=== PATIENT | male | born 1950 | race Caucasian/White ===

== ENCOUNTER 2022-06-16 08:09 | Outpatient (CLI) | payer BC, SELFPAY ==
--- NOTE | ~2022-06-16 | XR_ITS ---
Cervical Spine: AP, lateral, open-mouth views Clinical History: Pain Findings: There is mild reversal normal cervical lordosis. There is a moderate to advanced degenerati ve disc narrowing at C5-C6 and C6-C7. There is also severe degenerative disc narrowing or possibly fu radha across the C2-C3 disc. Possible fusion of the C2-C3 facet joints. There is right-sided facet razia nt degenerative change throughout the remainder of the cervical spine. Pre-vertebral soft tissues are unremarkable. Impression: Degenerative spondylosis, as detailed above. No fracture or subluxation. Reviewed, dictated and finalized at location . PTIONIST SCHEDULER Impression: Degenerative spondylosis, as detailed above. No fracture or subluxation.
--- NOTE | 2022-06-16 11:00 | NEURO_ITS ---
Impression: # Complains of numbness of right hand. # Evolving right Carpal Tunnel Syndrome. # Right ulnar neuropathy around the elbow. # Normal needle/EMG exam. Motor Nerve Conduction Upper Extremities Median Nerve Conduction Velocity (m/sec) Terminal Latency (msec) Response Voltage(mV) Elbow-Wrist Wrist Elbow Wrist Right 57 3.9 2 4 Left Ulnar Nerve Conduction Velocity (m/sec) Terminal Latency (msec) Response Voltage(mV) Above Elbow Below Elbow Wrist Above Elbow Below Elbow Wrist Right 46 48 2.7 3 3 4 Left F-Wave Latency Median (ms) Ulnar (ms) Right 29.5 28.2 Left Sensory Nerve Conduction Upper Extremities Median Nerve Stimulation Terminal Latency (msec) Wrist/Digit Response Voltage (uV) Wrist Right 3.5/3.5 22/12 Left Ulnar Nerve Stimulation Terminal Latency (msec) Wrist/Digit Response Voltage (uV) Wrist Right 2.4 12 Left Radial Nerve Terminal Latency (msec) Response Voltage(mV) Right 2.2 23 Left Left Right Muscles Examined Fibrillation Fasciculation Scarcity Voltage Duration Left Right Left Right Left Right Left Right Left Right Deltoid Biceps X Brachioradialis Triceps X Pronator Teres X Ext Indicis X Ext Digitorum X Abd Poll Brev X 1st Dorsal Interosseus X Abd Dig Min MTDD
== END 2022-06-16 08:10 | disposition home or self-care (01) ==
PROVIDERS: PCP Family Medicine; Visit Provider Family Medicine
DX: R20.0 Anesthesia of skin (principal); G56.01 Carpal tunnel syndrome, right upper limb; G56.21 Lesion of ulnar nerve, right upper limb; M47.892 Other spondylosis, cervical region
CPT/HCPCS: 72050; 95886; 95909

== ENCOUNTER 2025-04-04 03:21 | Day surgery (SDC) | payer MEDICARE, BC, SELFPAY ==
[2025-03-12 13:34] VITALS: BMI 36.3
--- OUTSIDE RECORDS SUMMARY | 2025-04-04 03:26 | XMS_ITS | Clinical Summary ---
Author Organization [facility] Address [address] [place] [address] Care Team Providers Care Transfer Station Attendant Name Role Phone Unavailable Primary Care Provider Unavailabl e Source Comments [facility],non-owned Affiliates and Associated Physician Practices is amultiple site organization consisting of ambulatory clinics and hospital sitesin [place], [place], [place] and [place]. This disclosure is being madepursuant to the Care Everywhere program and may not contain all information available regarding this patient. Last updated 18.[facility] Allergies Active Allergy Reactions Criticality Noted Date Comments Sanju Inhibitors Cough 06/08/2013 Medications * Be aware that medications may not be up to date on this document. Alwaysverify current medications with the patient. pravastatin (PRAVACHOL) 20 MG tablet Take 20 mg by mouth at bedtime. Active [place]-3 Fatty Acids (FISH OIL) 1200 MG CAPS Take 2 Caps by mouth 2 times daily. Active Multiple Vitamin (MULTIVITAMINS PO) Take 1 Cap by mouth once daily. Active Cholecalciferol (VITAMIN D) 2000 UNITS CAPS capsule Take 2,000 Units by mouth once daily. Active losartan-hydroc hlorothiazide (HYZAAR) 100-12.5 MG tablet Take 0.5 Tabs by mouth once daily. Active aspirin 81 MG tablet Take 81 mg by mouth once daily. Active phentermine (ADIPEX-P) 37.5 MG tablet Take 1 Tab by mouth daily before breakfast. 90 Tab 0 4 Active testosterone (ANDROGEL) 50 MG/5GM gel Use 5 g as instructed once daily. Apply to clean, dry, intact skin of the shoulders and upper arms. 90 Box 3 4 Active Active Problems Problem Noted Date Diagnosed Date Hypertensive heart disease without heart failure 06/08/2013 Overview (01/23/2015): Sinoatrial node dysfunction 06/08/2013 Mixed hyperlipidemia 06/08/2013 Obesity 06/08/2013 Overview (01/23/2015): Impaired fasting glucose 06/08/2013 Vitamin D deficiency 06/08/2013 Overview (01/23/2015): Other testicular hypofunction 06/08/2013 Gout 06/08/2013 Overview (01/23/2015): Edema 06/08/2013 Esophageal reflux 06/08/2013 Allergic rhinitis 06/08/2013 Overview (01/23/2015): Tinnitus 06/08/2013 Overview (01/23/2015): Other seborrheic keratosis 06/08/2013 Personal history of urinary calculi 06/08/2013 Personal history of other malignant neoplasm of skin 06/08/2013 Encounter for long-term (current) use of aspirin 06/08/2013 Immunizations Immunization Administration Dates Next Due DTaP VACCINE IM (6wk-6yrs) 06/13/2013 INFLUENZA VACCINE 04/25/2013,01/10/2012 ZOSTER VACCINE, LIVE 06/13/2013 Family History Medical History Relation Name Comments Cancer Brother lung COPD - Chronic Obstructive Pulmonary Disease Father Cancer Father Stroke Father MT Mother smoker Obesity Sister Relation Name Status Comments Brother Father (Age 70) lung CA -h eavy smoker Mother (Age 62) [place], heavy smoker, HTN Sister Social History Tobacco Use Types Packs/Day Years Used Date Smoking Tobacco: Never Smokeless Tobacco: Never Alcohol Use Standard Drinks/Week Comments Yes 1.7 (1 standard drink = 0.6 oz p ure alcohol) occasionally Sex and Gender Information Value Date Recorded Sex Assigned at Not on file Legal Sex Male 6:27 AM SPINNERET PERSON Gender Identity Not on file Sexual Orientation Not on file Occupation Industry Job Start Date Job End Date retired Not on file Not on file Not on file Last Filed Vital Signs Vital Sign Reading Time Taken Comments Blood Pressure 126/88 06/13/2013 11:41 AM SPINNERET PERSON Pulse 77 06/13/2013 11:41 AM SPINNERET PERSON Temperature 36.4 C (97.6 F) 06/13/2013 11:41 AM SPINNERET PERSON Respiratory Rate 18 06/13/2013 11:41 AM SPINNERET PERSON Oxygen Saturation 98% 06/13/2013 11:41 AM SPINNERET PERSON RA Inhaled Oxygen Concentration - - Weight 112.5 kg (248 lb) 06/13/2013 11:41 AM SPINNERET PERSON Height 175.9 cm (5' 9.25) 06/13/2013 11:[address] Body Mass Index 36.36 06/13/2013 11:41 AM SPINNERET PERSON Plan of Treatment Health Maintenance Due Date Last Done Comments COLOGUARD (AGES 45-75) - COL ON CA SCREENING 1950 CT COLONOGRAPHY - COLON CA SCREENING 1950 FIT - COLON CA SCREENING 1950 FLEX SIG - COLON CA SCREENING 1950 HEPATITIS C SCREENING 11/10/1970 PNEUMOCOCCAL VACCINE 50+ (1 of 1 - PCV) 2002 ZOSTER VACCINE (2 of 3) 08/08/2013 06/13/2013 COLON MONITORING 11/18/2013 11/19/2003 COLONOSCOPY - COLON CA SCREENING 11/18/2013 11/19/2003 (Previously completed), 11/19/2003 Colorectal Cancer Screening 11/18/2013 DTAP/TDAP/TD VACCINES (2 - Tdap) 06/13/2023 06/13/2013 DEPRESSION SCREENING 04/25/2024 COVID-19 VACCINE (1 - 2024-2 6 season) 2024 INFLUENZA VACCINE (#1) 2024 4, 01/10/2012 Respiratory Syncytial Virus (RSV) Vaccine Pt: or over 60 yrs (1 - 1-dose 75+ series) 11/15/2027 HEPATITIS B VACCINE Aged Out No longe r eligible based on patient's age to complete this topic HIB VACCINE Aged Out No longer eligi ble based on patient's age to complete this topic HPV VACCINE Aged Out No longer eligi ble based on patient's age to complete this topic MENINGOCOCCAL (Group B) VACCINE SHARED DECISION-MAKING Aged Out No longer eligible based on patient's age to complete this topic MENINGOCOCCAL GROUPS A/C/Y/W VACCINE Aged Out No longer eligible b ased on patient's age to complete this topic Procedures Procedure Name Priority Date/Time Associated Diagnosis Comments ENDOSCOPY, COLON, SCREENING Routine 11/19/2003 from Last 3 Months or Most Recently Relevant to Health Maintenance Results * ENDOSCOPY, COLON, SCREENING (11/19/2003) Sandra Hendricks MD GI PROCEDURE ORDERABLES Final Result from Last 3 Months or Most Recently Relevant to Health Maintenance Insurance [facility]
--- OUTSIDE RECORDS SUMMARY | 2025-04-04 03:26 | XMS_ITS | Clinical Summary ---
Author Organization [place] [address] [facility] Address [address] [place] [address] Care Team Providers Care Russian Language Professor Name Role Phone Elvie Dimas MD, Ted Gloria Unavailable Joseph Benitez MD Primary Care Provider [phone] Allergies Active Allergy Reactions Criticality Noted Date Comments Lisinopril Cough Low 12/17/2017 Medications allopurinol (ZYLOPRIM) 100 mg tabletIndicatio ns:prevention of acute gout attack Take 1 tablet (100 mg total) by mouth nightly 01/04/2018 Active cholecalciferol (VITAMIN D-3) 2,000 unit capsuleIndicati ons:Vitamin D Deficiency Take 1 capsule (2,000 Units total) by mouth daily with lunch Active diltiaZEM CD (CARDIZEM CD) 360 mg 24 hr capsuleIndicati ons:hypertensio n Take 1 capsule (360 mg total) by mouth every morning 12/19/2017 Active losartan-hydroC HLOROthiazide (HYZAAR) 100-12.5 mg per tabletIndicatio ns:hypertension Take 1 tablet by mouth every morning 11/21/2017 Active multivitamin (MULTIPLE VITAMINS ORAL)Indication s:supplement Take 1 capsule by mouth daily with lunch Active omega 9-fcm-rll-fish oil (FISH OIL) 360-1,200 mg capsule,delayed release(DR/EC)I ndications:hype rtriglyceridemi a Take 2 capsules by mouth 2 (two) times a day. Active pravastatin (PRAVACHOL) 20 mg tabletIndicatio ns:hyperlipidem ia Take 1 tablet (20 mg total) by mouth nightly Active ibuprofen (ibuprofen) 200 mg tab/capIndicati ons:Pain Take 2 tablet/capsul e (400 mg total) by mouth every 6 (six) hours as needed for pain Active aspirin 81 mg tabletIndicatio ns:prevention of thrombosis Take 1 tablet (81 mg total) by mouth daily with lunch Active hydroCHLOROthia zide (HYDRODIURIL) 12.5 mg tablet Take 1 tablet (12.5 mg total) by mouth daily Active finasteride (PROSCAR) 5 mg tablet TAKE 1 TABLET(5 MG) BY MOUTH DAILY 90 tablet 3 10/18/2024 Active Active Problems Problem Noted Date Diagnosed Date Malignant neoplasm of prostate 03/14/2018 Overview (03/14/2018): Added automatically from request for surgery [id number] Elevated PSA 01/09/2018 Overview (01/09/2018): Added automatically from request for surgery [id number] Allergic rhinitis 06/08/2013 Overview (07/28/2023): Edema 06/08/2013 Encounter for long-term (current) use of aspirin 06/08/2013 Esophageal reflux 06/08/2013 Gout 06/08/2013 Overview (07/28/2023): Hypertensive heart disease without heart failure 06/08/2013 Overview (07/28/2023): Impaired fasting glucose 06/08/2013 Obesity 06/08/2013 Overview (07/28/2023): Other seborrheic keratosis 06/08/2013 Mixed hyperlipidemia 06/08/2013 Personal history of other malignant neoplasm of skin 06/08/2013 Personal history of urinary calculi 06/08/2013 Sinoatrial node dysfunction 06/08/2013 Tinnitus 06/08/2013 Overview (07/28/2023): Vitamin D deficiency 06/08/2013 Overview (07/28/2023): Encounters Date Type Department Care Team Description 01/09/2025 Orders Only [facility] Medicine Physicians [facility] [address] Surgery [address] [place] [address] [address] [place] [id number] Reg Doss MD from Last 3 Months Surgical History Surgery Date Site/Laterality Comments LITHOTRIPSY 04/25/2011 - 04/24/2012 BUNIONECTOMY 04/25/2008 - 04/24/2009 Bilateral PROSTATE BIOPSY 04/25/2017 - 04/24/2018 COLONOSCOPY Multiple-- Last 2014 BASAL CELL CARCINOMA EXCISION ~2016 Scalp and left shoulder APPENDECTOMY 04/25/1959 - 04/24/1960 TOTAL KNEE ARTHROPLASTY 02/23/2019 - 03/24/2019 Left ARTHROSCOPIC REPAIR ACL 04/25/1995 - 04/24/1996 Right ACL repair Medical History Medical History Date Comments Hypertension dxd 2016 Hypercholesteremia Treated with statin and fish oil Kidney stone 2012 s/p lithotripsy Elevated PSA Last 7.6 in 12/12 18 Obesity History of basal cell cancer Sca lp and left shoulder s/p excisions 2016 History of prostate cancer dxd 2 018 s/p cryoablation History of total knee arthroplasty 05/2020 Right Family History Medical History Relation Name Comments Lung cancer Father Heart attack Mother Anesthesia problems Neg Hx Relation Name Status Comments Father (Age 72) Mother (Age 63) Fatal [place] Social History Tobacco Use Types Packs/Day Years Used Date Smoking Tobacco: Never Smokeless Tobacco: Never Alcohol Use Standard Drinks/Week Comments Yes 3 (1 standard drink = 0.6 oz pur e alcohol) 3-4 drinks per week AUDIT-C Answer Date Recorded Q1: How often do you have a drink containing alc ohol? Monthly or less 12/12/2020 Q2: How many drinks containi ng alcohol do you have on a typical day when you are drinking? 1 or 2 12/12/2020 Q3: How often do you have si x or more drinks on one occasion? Never 12/12/2020 Sex and Gender Information Value Date Recorded Sex Assigned at Not on file Legal Sex Male 7:44 PM TAXONOMIST Gender Identity Male 04/03/2022 7:20 AM TAXONOMIST Sexual Orientation Not on file Last Filed Vital Signs Vital Sign Reading Time Taken Comments Blood Pressure 132/66 12/12/2020 8:30 AM CDT Pulse 86 12/12/2020 8:30 AM CDT Temperature 36.1 C (97 F) 12/12/2020 8:15 AM CDT Respiratory Rate 16 12/12/2020 8:30 AM CDT Oxygen Saturation 94% 12/12/2020 8:30 AM CDT Inhaled Oxygen Concentration - - Weight 121.6 kg (268 lb) 04/13/2023 6:35 AM TAXONOMIST Height 180.3 cm (5' 11) 04/13/2023 6:35 AM TAXONOMIST Body Mass Index 37.38 04/13/2023 6:35 AM TAXONOMIST Plan of Treatment Health Maintenance Due Date Last Done Comments Colon Cancer Screening-Colonoscopy 1950 Depression Screening 1950 Hepatitis C Screening 1950 Hepatitis B Screening 1970 Pneumococcal vaccine 65+ (1 of 1 - PCV) 2002 Zoster Vaccine (2 of 3) 08/08/2013 06/13/2013 Well Visit 65+ 2017 Fall Risk Assessment 12/12/2021 12/12/2020 DTaP/Tdap/Td Vaccine (2 - Tdap) 06/13/2023 4 Influenza Vaccine (#1) 2024 8, 01/18/2017, 03/08/2016, Additional history exists Prostate Cancer Screening-PSA Discontinued , 07/18/2024, 01/25/2024, Additional history exists Medical Devices Implanted Type Area Sheep Shearer Device Identifier Shelf Expiration Date Model / Serial / Lot Screws Implanted:Qty: 2 Right: Knee Procedures Procedure Name Priority Date/Time Associated Diagnosis Comments PSA SCREEN Routine 01/09/2025 11:14 AM CDT COPY(IES) SENT TO: Routine 01/09/2025 11 :14 AM CDT from Last 3 Months Results * COPY(IES) SENT TO: (01/09/2025 11:14 AM CDT) COPY(IES) SENT TO: [facility] Comment: [facility] [address] [place] [address] 01/09/2025 11:1 4 AM CDT 01/09/2025 11:15 AM CDT Reg Doss MD LAB BLOOD ORDERABLES Final Resul t [facility] * PSA screen (01/09/2025 11:14 AM CDT) PSA 3.84 < OR = 4.00 ng/mL [facility] Comment: The total PSA value from this assay system is standardized against the WHO standard. The test result will be approximately 20% lower when compared to the equimolar-standardized total PSA ([place]). Comparison of serial PSA results should be interpreted with this fact in mind. This test was performed using the Siemens chemiluminescent method. Values obtained from different assay methods cannot be used interchangeably. PSA levels, regardless of value, should not be interpreted as absolute evidence of the presence or absence of disease. 01/09/2025 11:1 4 AM CDT 01/09/2025 11:15 AM CDT Reg Doss MD LAB BLOOD ORDERABLES Final Resul t Performing Organization Address City/[facility]/ZIP Co de Phone Number [facility] [address] [place] [address] from Last 3 Months Insurance [facility] FEDERAL Member Subscriber Plan / Payer (Ef fective 2015-Present) Name:Marco Antonio Johnston Relation to Subscriber:Self Name:Marco Antonio Johnston Payer ID:[id number] (NAIC) Group ID:[id number] Type: [employer] Address: [address] [place] [address] [place]ICARE [employer] [place] [employer] [place] Care Teams Russian Language Professor Relationship Specialty Start Date End Date Joseph Benitez MD [address] [place], [place] [id number] PCP - General Family Medicine 04/08/22 Ted Bermeo Jr., MD Consulting Physician Urology 12/12/20
--- OUTSIDE RECORDS SUMMARY | 2025-04-04 03:26 | XMS_ITS | Clinical Summary ---
Author Organization [facility] Address [address] [place] [id number] Care Team Providers Care Lcsw Name Role Phone Unavailable Primary Care Provider Unavailabl e Social History Tobacco Use Types Packs/Day Years Used Date Smoking Tobacco: Never Assessed Sex and Gender Information Value Date Recorded Sex Assigned at Not on file Legal Sex Male 7:52 PM CDT Gender Identity Not on file Sexual Orientation Not on file Plan of Treatment Health Maintenance Due Date Last Done Comments Colorectal Cancer Screening Colonoscopy (10 Years) 1952 Hepatitis C 1970 DTaP, Tdap and Td Vaccines ( 1 - Tdap) 11/15/1971 Pneumococcal Vaccine: 50+ Ye ars (1 of 1 - PCV) 2002 Zoster Vaccines (1 of 2) 2002 COVID-19 Vaccine ( - 2024-2 6 season) 2024 Influenza Adult (#1) 2025 RSV Immunization or 60+ Years (1 - 1-dose 75+ series) 11/15/2027 Hepatitis A Vaccines Aged Out No long er eligible based on patient's age to complete this topic Meningococcal B Vaccine Aged Out No l onger eligible based on patient's age to complete this topic Meningococcal Vaccine Aged Out No aminah erickson eligible based on patient's age to complete this topic RSV Immunizations Under 20 Months Aged Out No longer eligible based on patient's age to complete this topic
[2025-04-04 06:39] VITALS: BP 131/93; PULSE 68; RESP 16; TEMP 36.2; O2SAT 96; BMI 34.4
[2025-04-04] MEDS: LACTATED RINGERS 1,000 ML 150 ML IV CONT (07:08)
--- NOTE | 2025-04-04 07:19 | PM.IMHP2 ---
H&P: HPI History of Present Illness Date/Time: 04/04/25 07:19 Chief Complaint: Screening colonoscopy Narrative: This is the patient's 3rd screening colonoscopy. There are no GI symptoms and there is no family history of colorectal cancer. Review of Systems Review of Systems: All systems reviewed & are unremarkable except as noted in HPI and below PMFSH Past Medical History Medical History Gout Hyperglycemia Cervical stenosis of spine Cervicalgia Neck pain Right arm numbness Prostate cancer Diagnosed in 2019, sees urology routinely, Dr Romo Hypogonadism Hypertension Hyperlipidemia Surgical History Surgical History History of neck surgery Status post cryoablation History of colonoscopy History of hip replacement H/O knee surgery Family History Family History Father Lung cancer Mother Heart disease Social History Social History (Updated 02/12/25 @ 08:04 by Edu Gardiner) Social History: 01/02/25 very confident with medical forms. 02/11/25 patient declined SDOH Smoking status: Never smoker Alcohol intake: current Substance use: never Lack of Transportation: No Lack of Food: Never True Current Housing: I Have Housing Concerned About Future Housing: No Difficulty Paying Gas/Electric Bills: No Difficulty Paying for Meds: No Currently Unemployed: No Education: Associate Degree Difficulty w/ Childcare or Family Care: No Living arrangements: with family Occupation/Education: retired Spiritual care concerns: No Agree to blood products: Yes Meds Home Medications and Allergies Home Medications ?Medication ?Instructions ?Recorded ?Confirmed ?Type aspirin 81 mg tablet,delayed 81 mg PO DAILY 01/20/22 04/04/25 History release (Adult Low Dose Aspirin) cholecalciferol (vitamin D3) 50 50 mcg PO DAILY 01/20/22 04/04/25 History mcg (2,000 unit) capsule omega-3 fatty acids 1,000 mg 1,000 mg PO DAILY 01/20/22 04/04/25 History capsule finasteride 5 mg tablet 5 mg PO DAILY 07/19/24 04/04/25 History tirzepatide (weight loss) 5 mg/0.5 5 mg (0.5 mL) subcut WEEKLY #2 mL 09/13/24 04/04/25 Rx mL subcutaneous pen injector (Zepbound) diltiazem HCl 360 mg 360 mg PO DAILY #90 caps 01/21/25 04/04/25 Rx capsule,extended release 24 hr allopurinol 100 mg tablet 100 mg PO DAILY #90 tabs 02/04/25 04/04/25 Rx cefdinir 300 mg capsule 300 mg PO Q12H #14 caps 02/12/25 04/04/25 Rx losartan 50 mg tablet 50 mg PO DAILY #90 tabs 02/12/25 04/04/25 Rx hydrochlorothiazide 12.5 mg tablet 12.5 mg PO DAILY #90 tabs 02/20/25 04/04/25 Rx pravastatin 20 mg tablet 20 mg PO DAILY #90 tabs 02/22/25 04/04/25 Rx Allergies Allergy/AdvReac Type Severity Reaction Status Date / Time atorvastatin AdvReac Mild Cough Verified 04/04/25 06:38 lisinopril AdvReac Mild Cough Verified 04/04/25 06:38 Vital Signs Vital Signs - 24 hr 04/04/25 06:39 Temperature 97.1 F L Pulse Rate 68 Respiratory Rate 16 Blood Pressure 131/93 H Pulse Oximetry 96 Oxygen Delivery Room Air Exam Const: General: cooperative and healthy appearing Resp: Effort & Inspection: normal respiratory effort and able to speak in complete sentences Auscultation: clear to auscultation bilaterally Cardio: Rate: regular rate Rhythm: regular rhythm GI: Inspection: normal to inspection GI Palp: No No hepatosplenomegaly present Auscultation: normal bowel sounds Rectal Exam: deferred Skin: General skin exam: normal color Psych: Appearance: grossly normal Mental Status: mental status grossly normal Assessment and Plan Assessment and plan (1) Encounter for screening colonoscopy: Code(s): Z12.11 - Encounter for screening for malignant neoplasm of colon Status: Acute Assessment and Plan: The patient is deemed a good candidate for the procedure. Consent signed. Will proceed.
--- NOTE | 2025-04-04 07:32 | WPDANESEPPF ---
Anes - Initial Pre Proc Eval Procedure: Operation Date: 04/04/25 08:00 Proposed Procedures p Screening Colonoscopy - Ramírez Acosta MD Date/Time: 04/04/25 07:32 Surgeon: Ramírez Acosta MD Pre Op Diagnosis: Screening Patient Data Age: 74 Gender: M Height: 1.78 m Weight: 109 kg Last Vital Signs Temp 97.1 F L 04/04/25 06:39 Pulse 68 04/04/25 06:39 Resp 16 04/04/25 06:39 BP 131/93 H 04/04/25 06:39 Pulse Ox 96 04/04/25 06:39 O2 Del Method Room Air 04/04/25 06:39 Allergies Allergy/AdvReac Type Severity Reaction Status Date / Time atorvastatin AdvReac Mild Cough Verified 04/04/25 06:38 lisinopril AdvReac Mild Cough Verified 04/04/25 06:38 Home Medications ?Medication ?Instructions ?Recorded ?Confirmed ?Type aspirin 81 mg tablet,delayed 81 mg PO DAILY 01/20/22 04/04/25 History release (Adult Low Dose Aspirin) cholecalciferol (vitamin D3) 50 50 mcg PO DAILY 01/20/22 04/04/25 History mcg (2,000 unit) capsule omega-3 fatty acids 1,000 mg 1,000 mg PO DAILY 01/20/22 04/04/25 History capsule finasteride 5 mg tablet 5 mg PO DAILY 07/19/24 04/04/25 History tirzepatide (weight loss) 5 mg/0.5 5 mg (0.5 mL) subcut WEEKLY #2 mL 09/13/24 04/04/25 Rx mL subcutaneous pen injector (Zepbound) diltiazem HCl 360 mg 360 mg PO DAILY #90 caps 01/21/25 04/04/25 Rx capsule,extended release 24 hr allopurinol 100 mg tablet 100 mg PO DAILY #90 tabs 02/04/25 04/04/25 Rx cefdinir 300 mg capsule 300 mg PO Q12H #14 caps 02/12/25 04/04/25 Rx losartan 50 mg tablet 50 mg PO DAILY #90 tabs 02/12/25 04/04/25 Rx hydrochlorothiazide 12.5 mg tablet 12.5 mg PO DAILY #90 tabs 10/29/25 12/11/25 Rx pravastatin 20 mg tablet 20 mg PO DAILY #90 tabs 02/22/25 04/04/25 Rx Patient hx anesthesia problems: none Family hx anesthesia problems: none Results Review: All pre-operative results and documents have been reviewed as part of the pre-operative evaluation. [facility] Past Medical History Medical History Gout Hyperglycemia Cervical stenosis of spine Cervicalgia Neck pain Right arm numbness Prostate cancer Diagnosed in 2019, sees urology routinely, Dr Romo Hypogonadism Hypertension Hyperlipidemia Surgical History Surgical History History of neck surgery Status post cryoablation History of colonoscopy History of hip replacement H/O knee surgery Family History Family History Father Lung cancer Mother Heart disease Social History Social History (Updated 02/12/25 @ 08:04 by Edu Gardiner) Social History: 01/02/25 very confident with medical forms. 02/11/25 patient declined SDOH Smoking status: Never smoker Alcohol intake: current Substance use: never Lack of Transportation: No Lack of Food: Never True Current Housing: I Have Housing Concerned About Future Housing: No Difficulty Paying Gas/Electric Bills: No Difficulty Paying for Meds: No Currently Unemployed: No Education: Associate Degree Difficulty w/ Childcare or Family Care: No Living arrangements: with family Occupation/Education: retired Spiritual care concerns: No Agree to blood products: Yes Anes - Eval Final PreProcedure Day of Procedure 04/04/25 07:32 Patient weight: obese Heart: regular rate and rhythm Lungs: clear to auscultation Airway: Mallampati scale class II Neurological: alert and oriented Last oral intake: >/= 8 hours ASA classification: III Emergent: no Anesthetic plan: proceed Anesthesia type and monitoring: general GIVS and standard monitoring Results Review: All pre-operative results and documents have been reviewed as part of the pre-operative evaluation. Informed Consent: The patient's anesthetic plan and its attendant risks and benefits were discussed with the patient/family/POA. Questions were solicited and answers provided to the satisfaction of the patient/family/POA.
[2025-04-04 08:09] VITALS: BP 185/35; PULSE 60; RESP 20; O2SAT 97
[2025-04-04 08:19] VITALS: BP 106/73; PULSE 58; RESP 13; O2SAT 98
[2025-04-04 08:29] VITALS: BP 129/87; PULSE 58; RESP 16; O2SAT 97
== END 2025-04-04 08:32 | disposition home or self-care (01) ==
PROVIDERS: PCP Physician Assistant Medical; Referring Provider Physician Assistant Medical; Visit Provider Internal Medicine Gastroenterology
PROC: 0DJD8ZZ Inspection of Lower Intestinal Tract, Via Natural or Artificial Opening Endoscopic (ICD-10-PCS; CPT 45378; principal; 2025-04-04 08:00)
DX: Z12.11 Encounter for screening for malignant neoplasm of colon (principal); K62.89 Other specified diseases of anus and rectum; I10 Essential (primary) hypertension; E29.1 Testicular hypofunction; R73.9 Hyperglycemia, unspecified; M10.9 Gout, unspecified; M48.02 Spinal stenosis, cervical region; E66.9 Obesity, unspecified; Z68.34 Body mass index [BMI] 34.0-34.9, adult; Z79.82 Long term (current) use of aspirin; Z79.85 Long-term (current) use of injectable non-insulin antidiabetic drugs; Z98.890 Other specified postprocedural states; Z98.1 Arthrodesis status; Z85.46 Personal history of malignant neoplasm of prostate; Z80.1 Family history of malignant neoplasm of trachea, bronchus and lung; Z82.49 Family history of ischemic heart disease and other diseases of the circulatory system
CPT/HCPCS: G0105; J2003; J2704; J7120